=== PATIENT | female | born 1945 | race African-American/Black ===

== ENCOUNTER 2020-12-12 19:41 | Emergency (ER) | payer MEDICARE, OTHER ==
[2020-12-13 01:37] VITALS: BP 128/68
--- NOTE | 2020-12-13 01:49 | Emergency Department Report ---
ED Fall HPI - General Chief Complaint: Fall Stated Complaint: FELL DOWN Time Seen by Provider: 12/13/20 01:40 Source: patient Mode of arrival: Ambulatory - History of Present Illness Complaint: fall -: Sudden Fall From: standing (Was walking outside at the [employer] using walker when she lost her footing causing her to fall over on her right side striking her head elbow and face now has pain and swelling to the elbow region which is been a dull and throbbing fashion worse with palpation and range of motion minimal tende) Fall Witnessed: no Place Fall Occurred: home Loss of Consciousness: none Prolonged Down Time?: no Symptoms Prior to Fall: none Location: head, face Location - Extremities: Right: Elbow Quality: dull Context: tripped/slipped Associated Symptoms: weakness, chest paint, shortness of breath, abdominal pain, hematuria, unable to walk - Related Data Previous Rx's Medication Instructions Recorded Last Taken Type Acetaminophen/Codeine [Tylenol 1 tab PO Q6H PRN #14 tab 12/13/20 Unknown Rx /Codeine # 3 tab] Allergies Allergy/AdvReac Type Severity Reaction Status Date / Time No Known Allergies Allergy Verified 12/13/20 01:37 ED Review of Systems ROS: Stated complaint: FELL DOWN Other details as noted in HPI Comment: All other systems reviewed and negative ED Past Medical Hx - Past Medical History Previous Medical History?: Yes Additional medical history: Parkinson's Disease, Sjorgens Syndrome - Surgical History Past Surgical History?: No - Social History Smoking Status: Never Smoker Substance Use Type: None - Medications Home Medications: Home Medications Medication Instructions Recorded Confirmed Last Taken Type Acetaminophen/Codeine [Tylenol 1 tab PO Q6H PRN #14 tab 12/13/20 Unknown Rx /Codeine # 3 tab] ED Physical Exam - General Limitations: No Limitations General appearance: alert, in no apparent distress - Head Head exam: Present: atraumatic, normocephalic, normal inspection - Eye Eye exam: Present: normal appearance, PERRL. Absent: scleral icterus, conjunctival injection Pupils: Present: normal accommodation - ENT ENT exam: Present: normal exam, normal orophraynx, mucous membranes moist, TM's normal bilaterally - Neck Neck exam: Present: normal inspection, tenderness, full ROM - Respiratory Respiratory exam: Present: normal lung sounds bilaterally. Absent: respiratory distress, chest wall tenderness, accessory muscle use - Cardiovascular Cardiovascular Exam: Present: regular rate, normal rhythm. Absent: systolic murmur, diastolic murmur, rubs, gallop - GI/Abdominal GI/Abdominal exam: Present: soft, normal bowel sounds. Absent: hyperactive bowel sounds, hypoactive bowel sounds, organomegaly - Extremities Exam Extremities exam: Present: normal inspection, tenderness, joint swelling - Expanded Upper Extremity Exam Right Elbow exam: Present: tenderness, swelling. Absent: dislocation, erythema, pain w/ pronation/supination - Back Exam Back exam: Present: normal inspection. Absent: CVA tenderness (R), CVA tenderness (L) - Neurological Exam Neurological exam: Present: alert, oriented X3, CN II-XII intact, normal gait ( ) - Psychiatric Psychiatric exam: Present: normal affect, normal mood. Absent: anxious, flat affect, homicidal ideation - Skin Skin exam: Present: warm, dry, intact, normal color. Absent: rash, cyanosis, diaphoretic ED Course Vital Signs 12/13/20 01:30 Temperature 98.8 F Pulse Rate 86 Respiratory 18 Rate Blood Pressure 128/68 [Left] O2 Sat by Pulse 98 Oximetry - Orthopedic Splinting/Casting Injury #1 Side: right Upper Extremity Injury Location: elbow Upper Extremity Immobilizer: sling/shoulder immobilize, posterior splint ED Medical Decision Making - Radiology Data Radiology results: report reviewed [facility] [address] [place] [address] XRay Report Signed Patient: MATHEW ARAGON MR#: [id number] : 1945 Acct:[id number] Age/Sex: 75 / F ADM Date: 12/12/20 Loc: ED Attending Dr: Ordering Physician: GABE HOLLOWAY Date of Service: 12/13/20 Procedure(s): XR elbow 3+V RT Accession Number(s): [id number] cc: GABE HOLLOWAY Fluoro Time In Minutes: Right elbow 3 views INDICATION: Right elbow pain following injury IMPRESSION: Severe intra-articular fracture involving the proximal ulna with extension into the elbow joint space. Large elbow effusion. Mild degenerative changes of the elbow are present. The visualized radius and distal humerus appears intact. Signer Name: Abelardo Christina MD Signed: 12/13/2020 2:06 AM Workstation Name: [id number] Transcribed By: Dictated By: Abelardo Christina MD Electronically Authenticated By: Abelardo Christina MD Signed Date/Time: 12/13/20205 DD/ 4 TD/TT: [facility] [address] [facility] [address] [place] [address] Cat Scan Report Signed Patient: MATHEW ARAGON MR#: [id number] : 1945 Acct:[id number] Age/Sex: 75 / F ADM Date: 12/12/20 Loc: ED Attending Dr: Ordering Physician: GABE HOLLOWAY Date of Service: 12/13/20 Procedure(s): CT head/brain wo con Accession Number(s): [id number] cc: GABE HOLLOWAY CT head without contrast INDICATION : Headache following fall. TECHNIQUE: Axial imaging performed from the skull apex through the skull base without the use of contrast. All CT examinations performed at this facility utilize dose modulation, iterative reconstruction or weight-based dosing, when appropriate, to reduce radiation dose to as low as reasonably achievable. COMPARISON: None FINDINGS: No acute intracranial hemorrhage or parenchymal abnormality. Moderate diffuse cerebral atrophy Ventricles are normal in size and appear symmetric. Soft tissues incl uding the orbits appear normal. No acute osseous abnormality. Sinuses and mastoid air cells are clear. IMPRESSION: No acute abnormality. Signer Name: Abelardo Christina MD Signed: 12/13/2020 2:42 AM Workstation Name: [id number] Transcribed By: Dictated By: Abelardo Christina MD Electronically Authenticated By: Abelardo Christina MD Signed Date/Time: 12/13/20241 DD/ 6 TD/TT: Print - Medical Decision Making Problem 1 fall head injury current Nila coma scale 15. Does have large occiput to hematoma. No skull crepitance or stepoff. No Purdy sign. No raccoon eyes. No fluid from nose or ears. No nasal septal hematoma. No open wounds. No cervical spine tenderness. CT scan performed to evaluate for any intracranial injury or skull fracture. Patient is protecting airway and otherwise has an unremarkable secondary trauma survey. Given instructions regarding supportive care including pain meds as needed, return precautions, follow-up with primary physician. Problem 2 fall elbow pain deformity The patient presents to the emergency department with elbow pain after a mechanical trip and fall landing on her right elbow and has traumatic pain swelling with some ecchymosis which was suspicious for fracture the x-ray did show a severe proximal ulnar fracture with no current signs of compartment syndrome. Pain control was not addressed and the arm was splinted and placed in a sling and discussed the need for strict follow-up with orthopedic. Critical care attestation.: If time is entered above; I have spent that time in minutes in the direct care of this critically ill patient, excluding procedure time. ED Disposition Clinical Impression: Ulnar fracture Disposition: HOME / SELF CARE / HOMELESS Is pt being admited?: No Does the pt Need Aspirin: No Condition: Stable Instructions: Cast or Splint Care, Adult, [id number], Ulnar Fracture Rehab- SportsMed, Ulnar Fracture Prescriptions: Acetaminophen/Codeine [Tylenol /Codeine # 3 tab] 1 tab PO Q6H PRN #14 tab PRN Reason: Pain , Severe (7-10) Referrals: NY POLANCO MD [Primary Care Provider] - 3-5 Days ZULEYMA HUTTON MD [Staff Physician] - 3-5 Days
--- NOTE | 2020-12-13 02:10 | XRay Report ---
Right elbow 3 views INDICATION: Right elbow pain following injury IMPRESSION: Severe intra-articular fracture involving the proximal ulna with extension into the elbow joint space. Large elbow effusion. Mild degenerative changes of the elbow are present. The visualize d radius and distal humerus appears intact. Signer Name: Abelrado Christina MD Signed: 12/13/2020 2:06 AM Workstation Name: [id number]
--- NOTE | 2020-12-13 02:46 | Cat Scan Report ---
CT head without contrast INDICATION : Headache following fall. TECHNIQUE: Axial imaging performed from the skull apex through the skull base without the use of con trast. All CT examinations performed at this facility utilize dose modulation, iterative reconstruct ion or weight-based dosing, when appropriate, to reduce radiation dose to as low as reasonably achiev able. COMPARISON: None FINDINGS: No acute intracranial hemorrhage or parenchymal abnormality. Moderate diffuse cerebral at rophy Ventricles are normal in size and appear symmetric. Soft tissues including the orbits appear normal. No acute osseous abnormality. Sinuses and mastoid air cells are clear. IMPRESSION: No acute abnormality. Signer Name: Abelardo Christina MD Signed: 12/13/2020 2:42 AM Workstation Name: [id number]
[2020-12-13] MEDS ORDERED: oxyCODONE /ACETAMINOPHEN 5-325MG TAB PO ONE (03:20)
[2020-12-13] MEDS ORDERED: IBUPROFEN 600 MG TAB PO ONE (03:20)
[2020-12-13] MEDS ORDERED: ONDANSETRON 4 MG ODT TAB PO ONE (03:26)
== END 2020-12-13 04:33 | disposition home or self-care (01) ==
LOC: ED 19:41
DX: S52.201A Unspecified fracture of shaft of right ulna, initial encounter for closed fracture (principal); G20 Parkinson's disease; M35.00 Sjogren syndrome, unspecified; W19.XXXA Unspecified fall, initial encounter; Y93.89 Activity, other specified; Y92.89 Other specified places as the place of occurrence of the external cause; Y99.8 Other external cause status
CPT/HCPCS: 70450; 99283; Q0162